=== PATIENT | male | born 1995 | race Caucasian/White ===

== ENCOUNTER → 2020-06-17 10:32 | Outpatient (CLI) | payer BC, SELFPAY ==
[2020-06-17 10:01] VITALS: BMI 22.4
[2020-06-17 12:52] LABS: Ferritin 102 ng/mL (26-388); Follicle Stimulating Hormone 2.8 mIU/mL; Luteinizing Hormone 2.5 mIU/mL; Prolactin 6.8 ng/mL; T4 Free Direct 1.23 ng/dL (0.76-1.46); Thyroid Stim Hormone (TSH) 2.52 uIU/mL (0.358-3.74)
[2020-06-22 10:44] LABS: Testosterone, % Free 3.67 % (1.50-4.20); Testosterone, Total 267 ng/dL (264-916)
== END ==
PROVIDERS: Referring Provider Internal Medicine Endocrinology, Diabetes & Metabolism; Visit Provider Internal Medicine Endocrinology, Diabetes & Metabolism
DX: R79.89 Other specified abnormal findings of blood chemistry (principal)
CPT/HCPCS: 36415; 82533; 82728; 83001; 83002; 84146; 84402; 84403; 84439; 84443